=== PATIENT | male | born 1960 | race Caucasian/White ===

== ENCOUNTER 2017-11-13 11:50 | Emergency (ER) | payer OTHER, BC ==
[~2017-11-13] VITALS: Ht 180.3 cm; Wt 113.0 kg
[2017-11-13 12:13] LABS: BASOPHIL (%) 0.7 % (0-1); BASOPHIL COUNT 0.1 K/uL (0-0.1); EOSINOPHIL (%) 1.5 % (0-5); EOSINOPHIL COUNT 0.1 K/uL (0-0.3); HEMATOCRIT 44.6 % (38.0-50.0); HEMOGLOBIN 15.6 G/DL (12.5-16.6); IMMATURE GRANULOCYTE (%) 0.9 % (0.0-0.7); LYMPHOCYTE (%) 21.1 % (15-42); LYMPHOCYTE COUNT 1.6 K/uL (1.0-2.8); MCH 30.5 PG (29.0-34.0); MCV 87.3 FL (86-99); MONOCYTE (%) 8.3 % (3-12); MONOCYTE COUNT 0.6 K/uL (0-0.8); NEUTROPHIL (%) 67.5 % (45-76); PLATELET COUNT 190 K/uL (156-360); RBC DIS.WIDTH-CV 11.8 % (11.8-14.6); RBC DIS.WIDTH-SD 37.7 % (39-53); RED BLOOD COUNT 5.11 M/uL (4.00-5.50); WHITE BLOOD COUNT 7.4 K/uL (4.1-10.2)
[2017-11-13 12:21] LABS: AMYLASE 51 IU/L (1-118); CHLORIDE 103 mEq/L (99-109); SODIUM 138 mEq/L (136-147)
[2017-11-13 12:23] LABS: GLUCOSE 126 mg/dL (70-99)
[2017-11-13 12:26] LABS: SERUM ETHYL ALCOHOL < 10 mg/dL
[2017-11-13 12:27] LABS: CREATININE 0.9 mg/dL (0.6-1.3); GFR ESTIMATE (CALCULATED) > 59 mL/min/ (58.99-99999)
[2017-11-13 12:28] LABS: UREA NITROGEN (BUN) 12 mg/dL (9-23)
[2017-11-13 12:30] LABS: LIPASE 21 U/L (1.0-51.0)
[2017-11-13 13:55] VITALS: BP 120/80
[2017-11-13] MEDS ORDERED: PERCOCET 5/31 TABLET PO (14:41)
[2017-11-13] MEDS ORDERED: OXAYDO5 MG PO (14:42)
== END 2017-11-13 15:11 | disposition home or self-care (01) ==
LOC: TRA 11:50
PROVIDERS: Emergency Medicine
DX: S22.42XA Multiple fractures of ribs, left side, initial encounter for closed fracture (principal); S27.321A Contusion of lung, unilateral, initial encounter; S00.81XA Abrasion of other part of head, initial encounter; S60.512A Abrasion of left hand, initial encounter; V89.0XXA Person injured in unspecified motor-vehicle accident, nontraffic, initial encounter; Y92.410 Unspecified street and highway as the place of occurrence of the external cause; Y99.0 Civilian activity done for income or pay; I10 Essential (primary) hypertension; E03.9 Hypothyroidism, unspecified; E66.9 Obesity, unspecified; Z68.34 Body mass index [BMI] 34.0-34.9, adult; M50.322 Other cervical disc degeneration at C5-C6 level; K57.30 Diverticulosis of large intestine without perforation or abscess without bleeding; K76.0 Fatty (change of) liver, not elsewhere classified; M16.0 Bilateral primary osteoarthritis of hip; M47.896 Other spondylosis, lumbar region; M48.07 Spinal stenosis, lumbosacral region
CPT/HCPCS: 70450; 71260; 72125; 72129; 72132; 74177; 80048; 81003; 82150; 83690; 85025; 86850; 86900; 86901; 99281; 99285; G0480; J3010